=== PATIENT | female | born 1990 | race Hispanic/Latino ===

== ENCOUNTER 2023-11-08 20:35 | Emergency (ER) | payer BC, MEDICAID ==
[~2023-11-08] VITALS: Ht 162.6 cm; Wt 108.9 kg
[~2023-11-08 20:35] MED LIST: ADV250 IH; LABE100T7 PO; PREN-18 PO; VALA500T42 PO
[2023-11-08 21:57] VITALS: BP 131/65; PULSE 78; RESP 14; O2SAT 98
== END 2023-11-08 21:59 | disposition home or self-care (01) ==
LOC: EDH 20:35
DX: R10.9 Unspecified abdominal pain (principal); Z48.00 Encounter for change or removal of nonsurgical wound dressing; I10 Essential (primary) hypertension; E11.9 Type 2 diabetes mellitus without complications; J45.909 Unspecified asthma, uncomplicated; Z79.899 Other long term (current) drug therapy; Z98.890 Other specified postprocedural states
CPT/HCPCS: 99282